=== PATIENT | male | born 1950 | race Caucasian/White ===

== ENCOUNTER 2018-04-29 07:55 | Day surgery (SDC) | payer OTHER ==
[2018-04-29] MEDS ORDERED: EPHEDrine SULFATE 50 MG/5 ML SYG IV ×2 (10:30→12:30)
[2018-04-29] MEDS ORDERED: DIPHENHYDRAMINE 50 MG INJ IV ×2 (10:30→12:30)
[2018-04-29] MEDS ORDERED: ALBUTEROL 0.083% (NEB) 2.5 MG/3 ML AMP HHN (10:30)
[2018-04-29] MEDS ORDERED: hydrALAzine 20 MG INJ IV ×2 (10:30→12:30)
[2018-04-29] MEDS ORDERED: MIDAZOLAM 1 MG/ML 2 ML INJ IV ×2 (10:30→12:30)
[2018-04-29] MEDS ORDERED: MEPERIDINE 25 MG INJ IV ×2 (10:30→12:30)
[2018-04-29] MEDS ORDERED: LABETALOL HCL 20MG INJ IV ×2 (10:30→12:30)
[2018-04-29] MEDS ORDERED: HYDROmorphONE 1 MG/5 ML IV SYRINGE IV ×5 (10:30→12:30)
[2018-04-29] MEDS ORDERED: MIDAZOLAM 1 MG/ML 2 ML INJ (10:59)
[2018-04-29] MEDS ORDERED: FENTAnyl 50 MCG/ML VIAL (10:59)
[2018-04-29] MEDS ORDERED: PHENYLephrine (100 MCG/ML) 5ML SYG (11:07)
[2018-04-29] MEDS ORDERED: morphine 10 MG INJ IM (12:00)
[2018-04-29] MEDS ORDERED: HYDROCODONE/APAP (5/325) TAB PO ×2 (12:00)
== END 2018-04-29 16:00 | disposition home or self-care (01) ==
LOC: SDS 07:55
DX: L89.154 Pressure ulcer of sacral region, stage 4 (principal)
CPT/HCPCS: 11043; 94002